=== PATIENT | male | born 1995 | race African-American/Black ===

== ENCOUNTER 2017-09-19 13:25 | Emergency (ER) | payer BC, MEDICAID ==
[~2017-09-19] VITALS: Ht 182.9 cm; Wt 110.0 kg
[2017-09-19] MEDS ORDERED: KEPP500 PO (13:31)
[2017-09-19] MEDS ORDERED: ONDANSETRON HCL 4MG/2ML VIAL IV STA (14:18)
[2017-09-19] MEDS ORDERED: SODIUM CHLORIDE 0.9% 1,000 ML IV ONE (14:18)
[2017-09-19] MEDS ORDERED: LEVETIRACETAM 500MG PREMIX 100 ML IV ONE (14:30)
[2017-09-19 14:34] LABS: BASOPHILS % 0.8 % (0.0-2.0); EOSINOPHILS % 0.1 % (0.0-5.0); HEMATOCRIT. 49.3 % (42.0-52.0); HEMOGLOBIN. 16.3 g/dL (14.0-18.0); LYMPHOCYTES % 11.7 % (20.0-50.0); MEAN CORPUSCULAR HEMOGLOBIN 29.9 pg (28.0-32.0); MEAN CORPUSCULAR VOLUME 90.5 fL (80.0-94.0); MEAN PLATELET VOLUME 8.2 fl (7.4-10.4); MONOCYTES % 3.9 % (2.0-8.0); NEUTROPHILS % 83.5 % (40.0-76.0); PLATELET 233 x1000/uL (130-400); RED BLOOD CELL COUNT 5.45 mill/uL (4.7-6.1); RED CELL DISTRIBUTION WIDTH 13.7 % (11.6-14.6)
[2017-09-19 14:40] LABS: CHLORIDE 106 mEq/L (98-107)
[2017-09-19 14:48] LABS: CARBON DIOXIDE 21 mEq/L (21-32)
[2017-09-19 16:30] VITALS: BP 136/79
== END 2017-09-19 19:07 | disposition home or self-care (01) ==
LOC: ER 13:42
DX: G40.909 Epilepsy, unspecified, not intractable, without status epilepticus (principal); Z91.14 Patient's other noncompliance with medication regimen
CPT/HCPCS: 36415; 80053; 85025; 96365; 96366; 96375; 99285; J1953; J2405; 99284; J7030